=== PATIENT | female | born 2000 | race Caucasian/White ===

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

== ENCOUNTER 2018-02-04 10:56 | Emergency (ER) | payer BC ==
[2018-02-04 11:27] VITALS: BP 129/76
--- NOTE | 2018-02-04 11:54 | UC ---
Ear Complaint HPI - HPI Summary HPI Summary: 17-year-old female presents with 2 day history of bilateral ear pain. Associated with some mild nasal congestion. States she's had a couple month history of bilateral tinnitus and occasional vertigo lasting a few seconds. Patient also reports that she recently had a physical for [employer] and was told she failed her hearing test. She has not had any further evaluation of these symptoms. Denies fevers, chills, ear drainage, sore throat , cough, chest pain, shortness of breath, abdominal pain, nausea, or vomiting. - History of Current Complaint Chief Complaint: UCEar Stated Complaint: HEADACHE,COUGH,CONGESTION Time Seen by Provider: 02/04/18 11:28 Hx Obtained From: Patient Hx Last Menstrual Period: 01/28/18 ?: No Onset/Duration: Gradual Onset, Lasting Days - 2-3 Severity Currently: Mild Pain Intensity: 2 Aggravating Factors: Nothing Alleviating Factors: Nothing Associated Signs/Symptoms: Positive: Hearing Loss. Negative: Discharge, Trauma to Ear, URI Symptoms - Allergies/Home Medications Allergies/Adverse Reactions: Allergies Allergy/AdvReac Type Severity Reaction Status Date / Time Penicillins Allergy Hives Verified 02/04/18 11:25 PMH/Surg Hx/FS Hx/Imm Hx Previously Healthy: Yes - Denies significant PMH Other History Of: Negative For: HIV, Hepatitis B, Hepatitis C - Surgical History Surgical History: Yes Surgery Procedure, Year, and Place: Tonsillectomy 04/05 - Family History Known Family History: Positive: Non-Contributory - Social History Occupation: Student Lives: With Family Alcohol Use: None Substance Use Type: None Smoking Status (MU): Never Smoked Tobacco Have You Smoked in the Last Year: No - Immunization History Most Recent Influenza Vaccination: 01/02 Hx Tetanus, Diphtheria Vaccination: Yes Vaccination Up to Date: Yes Review of Systems All Other Systems Reviewed And Are Negative: Yes Constitutional: Negative: Fever, Chills Skin: Negative: Rash Eyes: Negative: Drainage, Eye Redness ENT: Positive: Ear Ache, Nasal Discharge. Negative: Sore Throat, Sinus Congestion, Sinus Pain/Tenderness Respiratory: Negative: Shortness Of Breath, Cough Cardiovascular: Negative: Palpitations, Chest Pain Gastrointestinal: Negative: Abdominal Pain, Vomiting, Nausea Is Patient Immunocompromised?: No Physical Exam Appearance: Well-Appearing, No Pain Distress, Well-Nourished Vital Signs: Initial Vital Signs Temp 99.2 F 02/04/18 11:24 Pulse 102 02/04/18 11:24 Resp 20 02/04/18 11:24 BP 129/76 02/04/18 11:24 Pulse Ox 100 02/04/18 11:24 Vital Signs Reviewed: Yes Eyes: Positive: Conjunctiva Clear. Negative: Discharge ENT: Positive: Hearing grossly normal, Pharynx normal, Uvula midline, Other - Bilateral TMs opaque, no erythema, air bubbles present. Negative: Nasal congestion, Nasal drainage, Tonsillar swelling, Tonsillar exudate, Sinus tenderness Neck: Positive: Supple, Nontender, No Lymphadenopathy Respiratory: Positive: Lungs clear, Normal breath sounds, No respiratory distress Cardiovascular: Positive: RRR, No Murmur Neurological: Positive: Alert Skin Exam: Normal Ear Complaint Course/Dx - Course Course Of Treatment: 17 year old female with 2 day history of bilateral ear pain. She also notes 2 months of tinnitus with occasional brief episodes vertigo and having failed a recent hearing test for [employer]. Exam was unremarkable except for some serous otitis. Will start her on fluticasone nasal spray and follow up with ENT. She states she has been seen previously by Dr. Modi and requests to return to him for evaluation. Warning symptoms reviewed with patient. Verbalizes understanding and agrees with POC. - Differential Dx/Diagnosis Differential Diagnosis/HQI/PQRI: Otitis Externa, Otitis Media, URI Provider Diagnoses: Serous otitis Discharge - Sign-Out/Discharge Documenting (check all that apply): Patient Departure All imaging exams completed and their final reports reviewed: No Studies - Discharge Plan Condition: Stable Disposition: HOME Prescriptions: Fluticasone NASAL SPRAY 50MCG* [Flonase NASAL SPRAY 50MCG*] 2 spray BOTH NARES DAILY #1 btl Patient Education Materials: Serous Otitis Media (ED) Referrals: Christel Padilla MD [Primary Care Provider] - Ashutosh Modi MD [Medical Doctor] - 2 Weeks (Call for appointment) Additional Instructions: Your exam did not reveal any infection within the ears. You did have some fluid behind the ear drums therefore we will treat you for a serous otitis media. Start fluticasone nasal spray 2 sprays each nostril once daily. Follow up with Dr. Modi, ENT, for further evaluation. Call for an appointment. Seek immediate medical attention if you develop fever greater than 100.5 F, have drainage or bleeding from the ear(s), loss of hearing, persistent dizziness , or any worsening of symptoms. - Billing Disposition and Condition Condition: STABLE Disposition: Home - Attestation Statements Provider Attestation: I was available for consult. This patient was seen by the [facility]. The patient was not presented to, seen by, or examined by me. -Corrine
== END 2018-02-04 12:00 | disposition home or self-care (01) ==
LOC: UCCORT 10:56
DX: H65.90 Unspecified nonsuppurative otitis media, unspecified ear (principal); Z88.0 Allergy status to penicillin
CPT/HCPCS: 99212; G0463

== ENCOUNTER 2018-06-17 09:07 | Emergency (ER) | payer BC ==
[2018-06-17 10:16] VITALS: BP 119/69
--- NOTE | 2018-06-17 10:25 | UC ---
Eye Complaint HPI - HPI Summary HPI Summary: 17-year-old female presents with complaints of right eye itching and crusting morning. States started yesterday with just her left eye but this morning she awoke with both eyes with a lot of crusting and itching with mild redness. States redness improves during the day and denies any purulent discharge. She has some mild nasal congestion at baseline secondary to environmental allergies. Denies fever, chills, visual disturbances, photophobia, or eye injury. - History of Current Complaint Chief Complaint: UCEye Stated Complaint: BILATERAL EYE CONCERN Time Seen by Provider: 06/17/18 10:16 Hx Last Menstrual Period: 01/28/18 Pain Intensity: 0 - Allergies/Home Medications Allergies/Adverse Reactions: Allergies Allergy/AdvReac Type Severity Reaction Status Date / Time Penicillins Allergy Hives Verified 06/17/18 10:11 Home Medications: Home Medications medroxyPROGESTERone ACETATE* [DEPO-Provera] 150 mg IM ONCE 06/17/18 [History Confirmed 06/17/18] PMH/Surg Hx/FS Hx/Imm Hx Previously Healthy: Yes - Denies significant PMH Other History Of: Negative For: HIV, Hepatitis B, Hepatitis C - Surgical History Surgical History: Yes Surgery Procedure, Year, and Place: Tonsillectomy 04/05 - Family History Known Family History: Positive: Non-Contributory Negative: Hypertension, Diabetes - Social History Occupation: Student Lives: Dormitory/Roommates Alcohol Use: Occasionally Substance Use Type: None Smoking Status (MU): Never Smoked Tobacco Have You Smoked in the Last Year: No - Immunization History Most Recent Influenza Vaccination: 01/02 Hx Tetanus, Diphtheria Vaccination: Yes Vaccination Up to Date: Yes Review of Systems All Other Systems Reviewed And Are Negative: Yes Constitutional: Negative: Fever, Chills Skin: Negative: Rash Eyes: Positive: Eye Redness, Other - eye itching. Negative: Blurred Vision, Diplopia, Drainage, Photophobia ENT: Positive: Sinus Congestion. Negative: Sore Throat, Ear Ache, Nasal Discharge, Sinus Pain/Tenderness Respiratory: Negative: Shortness Of Breath, Cough Cardiovascular: Positive: Negative Gastrointestinal: Positive: Negative Genitourinary: Positive: Negative Musculoskeletal: Positive: Negative Neurological: Positive: Negative Is Patient Immunocompromised?: No Physical Exam - Summary Physical Exam Summary: GENERAL APPEARANCE: Well developed, well nourished, alert and cooperative, and appears to be in no acute distress. EYES: Conjunctiva clear. No drainage. Vision is grossly intact. EARS: External auditory canals and tympanic membranes clear, hearing grossly intact. NOSE: Mild nasal congestion. No nasal discharge. THROAT: Pharynx normal. Tonsils surgically absent. Uvula midline. Oral cavity normal. Teeth and gingiva in good general condition. NECK: Neck supple, non-tender without lymphadenopathy. CARDIAC: Normal S1 and S2. No S3, S4 or murmurs. Rhythm is regular. There is no peripheral edema, cyanosis or pallor. Extremities are warm and well perfused. Capillary refill is less than 2 seconds. Peripheral pulses intact. LUNGS: Clear to auscultation without rales, rhonchi, wheezing or diminished breath sounds. ABDOMEN: Positive bowel sounds. Soft, nondistended, nontender. No guarding or rebound. No masses or hepatosplenomegally. MUSKULOSKELETAL: ROM intact to all extremities. No joint erythema or tenderness. Normal muscular development. Normal gait. SKIN: Skin normal color, texture and turgor with no lesions or eruptions. Triage Information Reviewed: Yes Vital Signs: Initial Vital Signs Temp 97.8 F 06/17/18 10:11 Pulse 81 06/17/18 10:11 Resp 15 06/17/18 10:11 BP 119/69 06/17/18 10:11 Pulse Ox 100 06/17/18 10:11 Vital Signs Reviewed: Yes Eye Complaint Course/Dx - Course Course Of Treatment: 17-year-old female presents with complaints of right eye itching and crusting morning. States started yesterday with just her left eye but this morning she awoke with both eyes with a lot of crusting and itching with mild redness. States redness improves during the day and denies any purulent discharge. She has some mild nasal congestion at baseline secondary to environmental allergies. Denies fever, chills, visual disturbances, photophobia, or eye injury. Afebrile. Vital signs stable. Exam was unremarkable. Suspect that her symptoms may be related to an allergic conjunctivitis versus bacterial conjunctivitis. Will have her start olopatadine 1% ophthalmic 1 drop both eyes twice a day. She is to return here or follow up with her primary care provider in 3 days if symptoms do not improve. Anticipatory guidance and warning symptoms were reviewed with the patient. Verbalizes understanding and agrees with plan of care. - Differential Dx/Diagnosis Differential Diagnosis/HQI/PQRI: Conjunctivitis, Corneal Abrasion, Uveitis Provider Diagnosis: Allergic conjunctivitis Discharge - Sign-Out/Discharge Documenting (check all that apply): Patient Departure All imaging exams completed and their final reports reviewed: No Studies - Discharge Plan Condition: Stable Disposition: HOME Prescriptions: Olopatadine 0.1% OPHTH (NF) [Patanol 0.1% OPHTH (NF)] 1 drop BOTH EYES BID #1 btl Patient Education Materials: Conjunctivitis (ED) Referrals: Loraine Chu PA [Primary Care Provider] - 3 Days (Follow up in 3-5 days if no improvement in symptoms.) Additional Instructions: Since you are not having any purulent eye drainage I suspect that you are having an allergic conjunctivitis. Start using olopatadine 0.1% ophthalmic eye drops. Instill 1 drop into both eyes twice a day. You may also use an over the counter moisturizing eye drop throughout the day as directed for any eye dryness or itching. Return here or follow up with your primary care provider in 3-5 days if no improvement. Sooner if symptoms worsen. Seek immediate medical attention if you have any visual disturbances, loss of vision, severe eye pain, or any worsening or concerning symptoms. - Billing Disposition and Condition Condition: STABLE Disposition: Home
== END 2018-06-17 10:30 | disposition home or self-care (01) ==
LOC: UCCORT 09:07
DX: H10.13 Acute atopic conjunctivitis, bilateral (principal); Z88.0 Allergy status to penicillin
CPT/HCPCS: 99212; G0463